=== PATIENT | male | born 2000 ===

== ENCOUNTER 2021-06-14 19:45 | Emergency (ER) | payer SELFPAY ==
[2021-06-14 21:30] VITALS: BP 148/78
--- NOTE | 2021-06-14 21:40 | Event Note ---
ED Screening Note Date of service: 06/14/21 Time: 21:36 ED Screening Note: 20-year-old male patient presents to emergency department with complaints of painful erythema to his right lower extremity starting 2 days ago. Patient states he slept on the floor of his friend's house prior to onset of his symptoms. He does not recall an insect bite or trauma to the affected area. Surrounding erythema began approximately 24 hours after the onset of pain. No recent travel. No recent camping trips. No known history of diabetes. General: Awake, appropriately interactive, no acute distress. Neck: Supple. Full range of motion intact. Cardiovascular: Normal peripheral perfusion. Pulmonary: No respiratory distress. Patient is speaking normally without use of accessory muscles. Skin: Well-demarcated erythematous rash to the medial aspect of the right lower leg with central clearing and overlying warmth/tenderness. Neurological: No facial asymmetry. Speech is clear. Follows commands. Patient is alert and oriented. Musculoskeletal: Moves all four extremities spontaneously with normal range of motion. Psych: Cooperative. Appropriate mood and affect. I have greeted and performed a focused rapid initial assessment of this patient. A comprehensive ED assessment and evaluation of the patient, analysis of all test results, and completion of the medical decision-making process will be conducted by additional ED providers. This initial assessment/diagnostic orders/clinical plan/treatment(s) is/are subject to change based on patients health status, clinical progression and re-assessment. Further treatment and workup at subsequent clinical provider's discretion. Patient/guardian urged not to elope from the ED as their condition may be serious if not clinically assessed and managed.
--- NOTE | 2021-06-14 22:02 | XRay Report ---
RIGHT TIBIA-FIBULA 2 VIEW(S) INDICATION / CLINICAL INFORMATION: left leg cellulitis; r/o foreign body COMPARISON: None available. FINDINGS: BONES / JOINT(S): No acute fracture or subluxation. No significant arthritis. SOFT TISSUES: Bandage overlies the right knee joint and proximal tibia and fibula. No significant sof t tissue swelling or subcutaneous gas is identified. ADDITIONAL FINDINGS: None. Signer Name: Lalo Cedillo MD Signed: 06/14/2021 9:57 PM Workstation Name: [id number]
[2021-06-14 22:11] LABS: Basophils # (Auto) 0.1 K/mm3 (0.0-0.1); Basophils % (Auto) 0.8 % (0.0-1.8); Eosinophils # (Auto) 0.2 K/mm3 (0.0-0.4); Eosinophils % (Auto) 1.4 % (0.0-4.3); Hematocrit 43.7 % (35.5-45.6); Hemoglobin 15.4 gm/dl (11.8-15.2); Lymphocytes # (Auto) 1.4 K/mm3 (1.2-5.4); Lymphocytes % (Auto) 9.6 % (13.4-35.0); Mean Corpuscular HGB Conc 35 % (32-34); Mean Corpuscular Volume 91 fl (84-94); Monocytes # (Auto) 1.1 K/mm3 (0.0-0.8); Monocytes % (Auto) 7.7 % (0.0-7.3); Platelet Count 222 K/mm3 (140-440); Red Blood Count 4.81 M/mm3 (3.65-5.03); Red Cell Distribution Width 12.8 % (13.2-15.2)
[2021-06-14 22:18] LABS: BUN/Creatinine Ratio 18; Blood Urea Nitrogen 14 mg/dL (9-20); Hemolysis Index 43
--- NOTE | 2021-06-15 04:37 | Emergency Department Report ---
ED General Adult HPI - General Chief complaint: Animal Bite Stated complaint: INSECT BITE/RT LEG Time Seen by Provider: 06/15/21 03:11 Source: patient Mode of arrival: Ambulatory Limitations: No Limitations - History of Present Illness Initial comments: 30-year-old male presents emerged department complaining of pain and erythema to his right lower extremity for the last 2 to 3 days which started after being over friend's house and being bitten by what he reports to be an insect of an unknown origin. The pain is dull and throbbing worse with palpation and range of motion began as local area of erythema and is continue to to to to to progress since the onset. Reports no joint pain, no fever, chills, sweats. He reports no foreign travel, no known contact with any takes no metabolic disorders no renal disorders no thyroid disease. -: Gradual Quality: aching, dull Consistency: constant Improves with: none Worsens with: none Associated Symptoms: denies other symptoms. denies: chest pain, cough, diaphoresis, loss of appetite, malaise, nausea/vomiting, shortness of breath, syncope Treatments Prior to Arrival: none - Related Data Previous Rx's Medication Instructions Recorded Last Taken Type Ketorolac [Toradol] 10 mg PO Q6H PRN #15 tablet 06/15/21 Unknown Rx Sulfamethoxazole/Trimethoprim 1 each PO BID #20 tablet 06/15/21 Unknown Rx [Bactrim Ds] cephALEXin [Keflex] 500 mg PO Q6HR #40 capsule 06/15/21 Unknown Rx Allergies Allergy/AdvReac Type Severity Reaction Status Date / Time No Known Allergies Allergy Unverified 06/14/21 20:47 ED Review of Systems ROS: Stated complaint: INSECT BITE/RT LEG Other details as noted in HPI Comment: All other systems reviewed and negative ED Past Medical Hx - Medications Home Medications: Home Medications Medication Instructions Recorded Confirmed Last Taken Type Ketorolac [Toradol] 10 mg PO Q6H PRN #15 tablet 06/15/21 Unknown Rx Sulfamethoxazole/Trimethoprim 1 each PO BID #20 tablet 06/15/21 Unknown Rx [Bactrim Ds] cephALEXin [Keflex] 500 mg PO Q6HR #40 capsule 06/15/21 Unknown Rx ED Physical Exam - General Limitations: No Limitations General appearance: alert, in no apparent distress - Head Head exam: Present: atraumatic, normocephalic - Eye Eye exam: Present: normal appearance, PERRL, EOMI Pupils: Present: normal accommodation - ENT ENT exam: Present: normal exam, mucous membranes moist - Neck Neck exam: Present: normal inspection, full ROM - Respiratory Respiratory exam: Present: normal lung sounds bilaterally. Absent: respiratory distress - Cardiovascular Cardiovascular Exam: Present: regular rate, normal rhythm. Absent: systolic murmur, diastolic murmur, rubs, gallop - GI/Abdominal GI/Abdominal exam: Present: soft, normal bowel sounds - Rectal Rectal exam: Present: deferred - Extremities Exam Extremities exam: Present: normal inspection, tenderness, normal capillary refill - Expanded Lower Extremity Exam Right Hip exam: Absent: ecchymosis, crepidus Upper Leg exam: Present: normal inspection Knee exam: Present: normal inspection Lower Leg exam: Present: tenderness, swelling, ecchymosis, erythema. Absent: crepidus, palpable cord Ankle exam: Present: normal inspection Foot/Toe exam: Present: normal inspection Neuro vascular tendon exam: Present: no vascular compromise - Back Exam Back exam: Present: normal inspection - Neurological Exam Neurological exam: Present: alert, oriented X3, CN II-XII intact - Psychiatric Psychiatric exam: Present: normal affect, normal mood - Skin Skin exam: Present: warm, dry, intact, normal color. Absent: rash ED Course Vital Signs 06/14/21 20:43 Temperature 99.7 F H Pulse Rate 94 H Respiratory 18 Rate Blood Pressure 148/78 O2 Sat by Pulse 100 Oximetry ED Medical Decision Making - Lab Data Result diagrams: 06/14/21 21:42 06/14/21 21:42 - Medical Decision Making Presentation consistent with simple cellulitis. Given history, exam, work-up I have low suspicion for necrotizing fasciitis, abscess, osteomyelitis, DVT or other emergent problem as cause for this presentation. The patient is nontoxic appearing and vital signs are stable. There is a reasonably low risk for sakina tment failure based on history. Strict return precautions were discussed with patient with full understanding. Advised patient to follow-up promptly with primary care care doctor within the next 48 hours. Critical care attestation.: If time is entered above; I have spent that time in minutes in the direct care of this critically ill patient, excluding procedure time. ED Disposition Clinical Impression: Cellulitis of leg Disposition: DC-01 TO HOME OR SELFCARE Is pt being admited?: No Does the pt Need Aspirin: No Condition: Stable Instructions: Cellulitis, Adult Additional Instructions: You have been seen by emergency department for skin infection. There is of the information was outlined in today's ER please return to the ER immediately if the redness increases beyond the border where it is currently. Please take your prescribed medication start hemodialysis directed for the full course of the medication. We recommend that you also take Tylenol and Motrin as needed for pain as recommended on the labels. Please schedule appointment with a follow-up with your primary care doctor soon as possible return to emergency department if you experience recurrent vomiting fevers greater than [phone], increased area of redness, warmth around the area foul-smelling discharge from the area, increased tenderness around the area or any other concerning symptoms Referrals: PRIMARY CARE, [Primary Care Provider] - 3-5 Days [facility] [Provider Group] - 3-5 Days
== END 2021-06-15 05:06 | disposition home or self-care (01) ==
LOC: ED 19:45
DX: L03.115 Cellulitis of right lower limb (principal)
CPT/HCPCS: 36415; 80048; 85025; 99283